=== PATIENT | male | born 1965 ===

== ENCOUNTER 2018-05-30 16:20 | Emergency (ER) | payer BC ==
[2018-05-30 16:28] VITALS: O2SAT 98
[2018-05-30 17:36] LABS: SQUAMOUS EPITHIAL < 1 /hpf (0-5); URINE BILIRUBIN NEGATIVE (NEGATIVE); URINE BLOOD NEGATIVE (NEGATIVE); URINE CLARITY Clear (Clear); URINE COLOR Yellow (YELLOW); URINE GLUCOSE (UA) NORMAL (Normal); URINE LEUKOCYTE ESTERASE NEG Leu/uL (Negative); URINE PROTEIN NEGATIVE (NEGATIVE); URINE UROBILINOGEN NORMAL mg/dL (0.2-1.0)
[2018-05-30 17:39] LABS: BASO # 0.1 K/uL (0.0-0.2); BASO % 0.9 % (0.0-2.0); EOS # 0.1 K/uL (0.0-0.7); EOS % 1.5 % (0.0-4.0); HEMOGLOBIN 15.5 g/dL (12.0-18.0); LYMPH # 1.5 K/uL (1.0-4.3); LYMPH % 18.1 % (20.0-40.0); MEAN CELL VOLUME 91.3 fL (80.0-94.0); MEAN CORPUSCULAR HEMOGLOBIN 31.4 pg (27.0-31.0); MEAN CORPUSCULAR HGB CONC 34.4 g/dL (33.0-37.0); MEAN PLATELET VOLUME 8.9 fL (7.2-11.7); MONO # 0.6 K/uL (0.0-0.8); MONO % 7.6 % (0.0-10.0); NEUT # 5.9 K/uL (1.8-7.0); NEUT % 71.9 % (50.0-75.0); NRBC % 0.3 % (0.0-2.0); RBC 4.94 Mil/uL (4.40-5.90); RED CELL DISTRIBUTION WIDTH 14.6 % (11.5-14.5); WHITE BLOOD COUNT 8.1 K/uL (4.8-10.8)
[2018-05-30 17:46] LABS: ALB/GLOB RATIO 1.7 (1.0-2.1); ALBUMIN 4.9 g/dL (3.5-5.0); BLOOD UREA NITROGEN 13 mg/dL (9-20); CALCIUM 9.4 mg/dl (8.6-10.4); GFR NON-AFRICAN AMERICAN > 60
--- NOTE | 2018-05-30 17:53 | CT ---
Date of service: 05/30/2018 PROCEDURE: CT HEAD WITHOUT CONTRAST. HISTORY: slurred speech x 2 months, elevated BP COMPARISON: None available. TECHNIQUE: Axial computed tomography images were obtained through the head/brain without intravenous contrast. Radiation dose: Total exam DLP = 1152.54 mGy-cm. This CT exam was performed using one or more of the following dose reduction techniques: Automated exposure control, adjustment of the mA and/or kV according to patient size, and/or use of iterative reconstruction technique. FINDINGS: HEMORRHAGE: No intracranial hemorrhage. BRAIN: Camacho-white matter differentiation is preserved. There is no mass, mass effect or abnormal extra-axial fluid collection. There is no territorial infarction. The midline sagittal structures are normal. VENTRICLES: The ventricles are normal in size, shape and configuration. CALVARIUM: There is no calvarial fracture or extracranial soft tissue swelling. PARANASAL SINUSES: There is mild scattered mucoperiosteal thickening in the ethmoid air cells, right sphenoid chamber and left maxillary sinus. MASTOID AIR CELLS: Predominantly clear. OTHER FINDINGS: None. IMPRESSION: No acute intracranial abnormality. If there is a persistent focal neurologic deficit and an ongoing clinical concern for acute infarction, an MRI of the brain without intravenous contrast would be a more sensitive modality for evaluation of hyperacute/acute ischemic infarction.
[2018-05-30] MEDS ORDERED: Enalaprilat 2.5 MG/2 ML IV STA (17:56)
[2018-05-30 17:57] LABS: CK-MB 5.06 ng/mL (0.0-3.38)
--- NOTE | 2018-05-30 18:02 | RAD ---
Date of service: 05/30/2018 PROCEDURE: CHEST RADIOGRAPH, 1 VIEW HISTORY: SOB COMPARISON: None available. FINDINGS: LUNGS: The lungs are well inflated and clear. PLEURA: No pneumothorax or pleural effusion. CARDIOVASCULAR: The heart is normal in size. No aortic atherosclerotic calcifications present. OSSEOUS STRUCTURES: Within normal limits for the patient's age. VISUALIZED UPPER ABDOMEN: Normal. OTHER FINDINGS: None. IMPRESSION: No active pulmonary disease.
[2018-05-30 18:04] LABS: ALT/SGPT 22 U/L (21-72); AST/SGOT 51 U/L (17-59)
[2018-05-30] MEDS ORDERED: Enalaprilat 2.5 MG/2 ML ONE (18:04)
[2018-05-30 18:06] LABS: INR 1.1
--- NOTE | 2018-05-30 18:23 | C.PDOC ---
History Of Present Illness 52 y/o male, w/PMhx of hypothyroidism, presents to the ER for elevated blood pressure. Patient states that he went to his PMD 's office for the first time today. He had elevated systolic blood pressure 220 in the office and he was referred to the ER. He is supposed to be taking Synthroid 200 ug . However, patient reports that he has not been taking his medications because did not have insurance for the past 2 months. He notes that he also has slurred speech which began about 3 months ago. He states that he has weight gain. Denies having fever,chills, CP, SOB, nausea, vomiting, and abdominal pain. Time Seen by Provider: 05/30/18 16:30 Chief Complaint (Nursing): High Blood Pressure History Per: Patient History/Exam Limitations: no limitations Onset/Duration Of Symptoms: Days Current Symptoms Are (Timing): Still Present Severity: Moderate Past Medical History Vital Signs: Last Vital Signs Temp 98.4 F 05/30/18 16:24 Pulse 87 05/30/18 16:30 Resp 20 05/30/18 16:24 BP 151/109 H 05/30/18 18:05 Pulse Ox 98 05/30/18 16:24 Family History: States: No Known Family Hx - Social History Hx Alcohol Use: No Hx Substance Use: No - Immunization History Hx Tetanus Toxoid Vaccination: No Hx Influenza Vaccination: No Hx Pneumococcal Vaccination: No Review Of Systems Except As Marked, All Systems Reviewed And Found Negative. Constitutional: Negative for: Fever, Chills Cardiovascular: Negative for: Chest Pain Respiratory: Negative for: Shortness of Breath Neurological: Positive for: Other (slurred speech). Negative for: Weakness, Numbness Physical Exam - Physical Exam Appears: Non-toxic, No Acute Distress Skin: Normal Color, Warm, Dry Head: Atraumatic, Normacephalic Eye(s): bilateral: Normal Inspection Nose: Normal Oral Mucosa: Moist Neck: Supple Chest: Symmetrical Cardiovascular: Rhythm Regular Respiratory: Normal Breath Sounds, No Rales, No Rhonchi, No Wheezing Gastrointestinal/Abdominal: Normal Exam, Soft, No Tenderness, No Guarding, No Rebound Neurological/Psych: Oriented x3, No Normal Speech (mild slurred speech) ED Course And Treatment - Laboratory Results Result Diagrams: 05/30/18 17:29 05/30/18 17:29 Lab Results: PT 12.0 SECONDS (9.7-12.2) 05/30/18 17: INR 1.1 05/30/18 17: APTT 39 SECONDS (21-34) H 05/30/18 17: Troponin I 0.0130 ng/mL (0.00-0.120) 05/30/18 17: Total Bilirubin 0.8 mg/dL (0.2-1.3) 05/30/18 17: AST 51 U/L (17-59) 05/30/18 17: ALT 22 U/L (21-72) 05/30/18 17: Alkaline Phosphatase 63 U/L (38-126) 05/30/18 17: Total Protein 7.8 g/dL (6.3-8.3) 05/30/18 17: Albumin 4.9 g/dL (3.5-5.0) 05/30/18: Globulin 2.8 gm/dL (2.2-3.9) 05/30/18: Albumin/Globulin Ratio 1.7 (1.0-2.1) 05/30/18 17: Urine Color Yellow (YELLOW) 05/30/18 17: Urine Clarity Clear (Clear) 05/30/18 17: Urine pH 6.0 (5.0-8.0) 05/30/18 17: Ur Specific [place] 1.015 (1.003-1.030) 05/30/18 17: Urine Protein Negative mg/dL (NEGATIVE) 05/30/18 17: Urine Glucose (UA) Normal mg/dL (Normal) 05/30/18 17: Urine Ketones Negative mg/dL (NEGATIVE) 05/30/18 17: Urine Blood Negative (NEGATIVE) 05/30/18 17: Urine Nitrate Negative (NEGATIVE) 05/30/18 17: Urine Bilirubin Negative (NEGATIVE) 05/30/18 17: Urine Urobilinogen Normal mg/dL (0.2-1.0) 05/30/18 17: Ur Leukocyte Esterase Neg [place]/uL (Negative) 05/30/18 17: Urine WBC (Auto) 1 /hpf (0-5) 05/30/18 17: Urine RBC (Auto) 2 /hpf (0-3) 05/30/18 17:29 Ur Squamous Epith Cells < 1 /hpf (0-5) 05/30/18 17:29 O2 Sat by Pulse Oximetry: 98 (RA) Pulse Ox Interpretation: Normal - Other Rad CXR X-Ray: Viewed By Me, Read By Radiologist Interpretation: Date of service: 05/30/2018. PROCEDURE: CHEST RADIOGRAPH, 1 VIEW. HISTORY: SOB. COMPARISON: None available. FINDINGS: LUNGS: The l ungs are well inflated and clear. PLEURA: No pneumothorax or pleural effusion. CARDIOVASCULAR: The heart is normal in size. No aortic atherosclerotic calcifications present. OSSEOUS STRUCTURES: Within normal limits for the patient's age. VISUALIZED UPPER ABDOMEN: Normal. OTHER FINDINGS: None. IMPRESSION: No active pulmonary disease. - CT Scan/US CT-Head Other Rad Studies (CT/US): Read By Radiologist, Radiology Report Reviewed CT/US Interpretation: Date of service: 05/30/2018. PROCEDURE: CT HEAD WITHOUT CONTRAST. HISTORY: slurred speech x 2 months, elevated BP. COMPARISON: None available. TECHNIQUE: Axial computed tomography images were obtained through the head/brain without intravenous contrast. Radiation dose: Total exam DLP = 1152.54 mGy-cm. This CT exam was performed using one or more of the following dose reduction techniques: Automated exposure control, adjustment of the mA a nd/or kV according to patient size, and/or use of iterative reconstruction technique. FINDINGS: HEMORRHAGE: No intracranial hemorrhage. BRAIN: Camacho- white matter differentiation is preserved. There is no mass, mass effect or abnormal extra-axial fluid collection. There is no territorial infarction. The midline sagittal structures are normal. VENTRICLES: The ventricles are normal in size, shape and configuration. CALVARIUM: There is no calvarial fracture or extracranial soft tissue swelling. PARANASAL SINUSES: There is mild scattered mucoperiosteal thickening in the ethmoid air cells, right sphenoid chamber and left maxillary sinus. MASTOID AIR CELLS: Predominantly clear. OTHER FINDINGS: None. IMPRESSION: No acute intracranial abnormality. If there is a persistent focal neurologic deficit and an ongoing clinical concern for acute infarction, an MRI of the brain without intravenous contrast would be a more sensitive modality for evaluation of hyperacute/acute ischemic infarction. Progress Note: Labs, UA, ECG, CT-Head and CXR ordered. Patient treated with Vasotec IV. Patient was offered obs and further evaluation, but patient declined. Patient was seen by ED attending who explained patient the risk of leaving AMA, patient still insists on leaving AMA. Disposition - Disposition Disposition: AGAINST MEDICAL ADVICE Disposition Time: 18:40 Condition: FAIR Additional Instructions: follow up with your doctor/clinic. reutrn to any er with worsening. Prescriptions: Levothyroxine [Synthroid] 200 mcg PO DAILY #10 tab Instructions: Dysarthria, Hypothyroidism (Underactive Thyroid) (DC), Leaving Against Medical Advice Forms: [employer] ([place]) - Clinical Impression Clinical Impression: Hypertension, Dysarthria, Hypothyroidism - PA / STEM ROLLER / Resident Statement MD/DO has reviewed & agrees with the documentation as recorded. - Scribe Statement The provider has reviewed the documentation as recorded by the Kettyibe Norma Dawn Provider Attestation All medical record entries made by the Kettyibe were at my direction and personally dictated by me. I have reviewed the chart and agree that the record accurately reflects my personal performance of the history, physical exam, medical decision making, and the department course for this patient. I have also personally directed, reviewed, and agree with the discharge instructions and disposition.
[2018-05-30 18:44] VITALS: BP 150/112; PULSE 78; RESP 12
[2018-05-30 19:00] VITALS: TEMP 98.3
--- NOTE | 2018-06-02 20:08 | CARD ---
APPROVED REPORT Date of service: 05/30/2018 EKG Measurement Heart [id number] <Conclusion> Normal sinus rhythm Normal ECG
== END 2018-05-30 19:03 | disposition left against medical advice (07) ==
LOC: C.ER 16:20
DX: I10 Essential (primary) hypertension (principal); R47.1 Dysarthria and anarthria; E03.9 Hypothyroidism, unspecified